=== PATIENT | male | born 1990 | race Caucasian/White ===

== ENCOUNTER 2017-12-26 12:08 | Day surgery (SDC) | payer OTHER ==
[~2017-12-26 12:08] MED LIST: CEFAZOLIN 1 GM INJ; LIDOCAINE 2% (SDV) 5 ML INJ; PROPOFOL 1000 MG INJ; PROPOFOL 200 MG INJ
[2017-12-26] MEDS ORDERED: LACTATED RINGER'S 1,000 ML IV* (13:00)
[2017-12-26] MEDS ORDERED: CEFAZOLIN 2 GM/50 ML (PMX) 50 ML IVPB (13:00)
[2017-12-26] MEDS ORDERED: MIDAZOLAM 1 MG/ML 2 ML INJ ×2 (13:59→14:09)
[2017-12-26] MEDS ORDERED: ROPIVACAINE 0.5 % 30 ML VIAL (14:00)
[2017-12-26] MEDS ORDERED: ONDANSETRON 4 MG INJ (14:00)
[2017-12-26] MEDS ORDERED: DEXAMETHASONE 4 MG/ML 1 ML INJ (14:36)
== END 2017-12-26 17:15 | disposition home or self-care (01) ==
LOC: SDS 12:08
DX: T84.84XA Pain due to internal orthopedic prosthetic devices, implants and grafts, initial encounter (principal); Y79.3 Surgical instruments, materials and orthopedic devices (including sutures) associated with adverse incidents; F17.200 Nicotine dependence, unspecified, uncomplicated
CPT/HCPCS: 20680; 73080-RT; 88300